=== PATIENT | male | born 1995 | race Two or more races ===

== ENCOUNTER 2020-07-07 11:55 | Emergency (ER) | payer SELFPAY ==
[~2020-07-07] VITALS: Ht 180.3 cm; Wt 97.5 kg
--- NOTE | 2020-07-07 12:18 | NUR ---
PT TO ED. AMBULATORY W. STEADY GAIT C/O L SIDED TESTICULAR PAIN S/P LIFTING WEIGHTS 5 DAYS AGO. STABLE VITALS NAD NOTED. AWAITING MD LEVY.
--- NOTE | 2020-07-07 12:52 | NUR ---
DR SUTHERLAND AT BEDSIDE FOR EVAL.
--- NOTE | 2020-07-07 12:56 | NUR ---
U/S TECH AT BEDSIDE FOR SCROTAL ULTRASOUND.
[2020-07-07] MEDS ORDERED: CEFTRIAXONE 500 MG VIAL IM ONE (13:30)
[2020-07-07] MEDS ORDERED: DOXY100T2 PO (13:34)
[2020-07-07] MEDS ORDERED: CEFTRIAXONE 500 MG VIAL ONE (13:52)
[2020-07-07] MEDS ORDERED: LIDOCAINE /MPF 1% VIAL 5 ML VIAL ONE (13:52)
--- NOTE | 2020-07-07 14:08 | NUR ---
Patient discharged to home in stable condition. Written and verbal after care instructions given. Patient verbalizes understanding of instruction.
[2020-07-07 14:09] VITALS: BP 132/77
== END 2020-07-07 14:09 | disposition home or self-care (01) ==
LOC: ER 12:00
DX: N45.1 Epididymitis (principal)
CPT/HCPCS: 76870; 96372; 99284; J0696; J3490